=== PATIENT | male | born 1955 | race Caucasian/White ===

== ENCOUNTER 2019-03-05 12:13 | Emergency (ER) | payer OTHER ==
[~2019-03-05] VITALS: Ht 182.9 cm; Wt 78.0 kg
[2019-03-05] MEDS ORDERED: BERBERINE (12:41)
== END 2019-03-05 16:11 | disposition home or self-care (01) ==
LOC: ER 12:13
DX: K40.90 Unilateral inguinal hernia, without obstruction or gangrene, not specified as recurrent (principal); E11.9 Type 2 diabetes mellitus without complications

== ENCOUNTER 2019-05-14 10:06 | Emergency (ER) | payer OTHER ==
[~2019-05-14] VITALS: Ht 182.9 cm; Wt 77.1 kg
[~2019-05-14 10:06] MED LIST: BERBERINE
[2019-05-14] MEDS ORDERED: FORTAMET500 MG (10:35)
== END 2019-05-14 11:21 | disposition home or self-care (01) ==
LOC: ER 10:06
DX: L02.212 Cutaneous abscess of back [any part, except buttock and flank] (principal); B96.4 Proteus (mirabilis) (morganii) as the cause of diseases classified elsewhere

== ENCOUNTER 2020-02-03 14:31 | Emergency (ER) | payer OTHER ==
[~2020-02-03] VITALS: Ht 182.9 cm; Wt 78.0 kg
[~2020-02-03 14:31] MED LIST changes: +FORTAMET500 MG
== END 2020-02-03 20:35 | disposition home or self-care (01) ==
LOC: ER 14:31
DX: R10.31 Right lower quadrant pain (principal); N50.89 Other specified disorders of the male genital organs; N50.3 Cyst of epididymis

== ENCOUNTER 2020-08-20 13:32 | Emergency (ER) | payer OTHER ==
[~2020-08-20] VITALS: Ht 182.9 cm; Wt 77.1 kg
== END 2020-08-20 19:50 | disposition home or self-care (01) ==
LOC: ER 13:32
DX: E11.622 Type 2 diabetes mellitus with other skin ulcer (principal); L89.522 Pressure ulcer of left ankle, stage 2; L89.512 Pressure ulcer of right ankle, stage 2; L03.116 Cellulitis of left lower limb; L03.115 Cellulitis of right lower limb; Z79.84 Long term (current) use of oral hypoglycemic drugs

== ENCOUNTER 2022-08-28 11:32 | Emergency (ER) | payer OTHER ==
[~2022-08-28] VITALS: Ht 175.3 cm; Wt 90.7 kg
== END 2022-08-28 17:37 | disposition home or self-care (01) ==
LOC: ER 11:32
DX: R50.9 Fever, unspecified (principal); E11.65 Type 2 diabetes mellitus with hyperglycemia; Z79.84 Long term (current) use of oral hypoglycemic drugs

== ENCOUNTER 2024-01-26 04:49 | Emergency (ER) | payer OTHER ==
[~2024-01-26] VITALS: Ht 167.6 cm; Wt 63.5 kg
[2024-01-26] MEDS ORDERED: KETOROLAC TROMETHAMINE 60 MG VIAL IM STA (05:10)
[2024-01-26] MEDS ORDERED: ORPHENADRINE CITRATE 30 MG/ML AMPUL IM STA (05:11)
[2024-01-26] MEDS ORDERED: ORPHENADRINE CITRATE 30 MG/ML AMPUL ONE (05:16)
[2024-01-26] MEDS ORDERED: KETOROLAC TROMETHAMINE 60 MG VIAL IM ONE (05:16)
[2024-01-26] MEDS ORDERED: NABUMETONE750 MG PO (07:48)
[2024-01-26] MEDS ORDERED: NORFLEX100MG PO (07:48)
== END 2024-01-26 08:34 | disposition home or self-care (01) ==
LOC: ER 04:49
DX: S39.012A Strain of muscle, fascia and tendon of lower back, initial encounter (principal); X58.XXXA Exposure to other specified factors, initial encounter; Y93.89 Activity, other specified; Y92.89 Other specified places as the place of occurrence of the external cause; Y99.8 Other external cause status; E11.9 Type 2 diabetes mellitus without complications; Z79.84 Long term (current) use of oral hypoglycemic drugs